=== PATIENT | male | born 1955 | race Caucasian/White ===

== ENCOUNTER 2023-03-26 10:44 | Inpatient (IN) | payer OTHER ==
[~2023-03-26] VITALS: Ht 162.6 cm; Wt 86.2 kg
[~2023-03-26 10:44] MED LIST: METF-1139 PO
[2023-03-26 10:55] VITALS: BP 122/53; PULSE 80; RESP 15; TEMP 98.4; O2SAT 99
[2023-03-26 11:51] VITALS: O2SAT 97
[2023-03-26 12:20] LABS: BASOPHILS % (AUTO) 0.6 % (0.0-2.0); EOSINOPHILS # (AUTO) 0.3 K/uL (0-0.4); HEMATOCRIT 32.2 % (36-52); HEMOGLOBIN 10.9 g/dL (12.0-18.0); LYMPHOCYTES # (AUTO) 1.1 K/uL (2.0-11.5); LYMPHOCYTES % (AUTO) 16.9 % (20.5-51.1); MEAN CORPUSCULAR HEMOGLOBIN 29 pg (27-31); MEAN CORPUSCULAR HGB CONC 34 g/dL (33-37); MEAN CORPUSCULAR VOLUME 84.7 fL (80-94); MONOCYTES # (AUTO) 0.7 K/uL (0.8-1.0); MONOCYTES % (AUTO) 10.4 % (1.7-9.3); NEUTROPHILS # (AUTO) 4.4 K/uL (1.8-7.7); NEUTROPHILS % (AUTO) 68.1 % (42.2-75.2); PLATELET COUNT (AUTO) 186 K/uL (140-450); RED CELL DISTRIBUTION WIDTH 13.2 % (11.6-13.7); WHITE BLOOD COUNT (AUTO) 6.4 K/uL (4.8-10.8)
[2023-03-26 13:14] LABS: ALBUMIN 3.1 g/dL (3.4-5.0); ANION GAP 13.2 (8-16); CALCIUM 8.4 mg/dL (8.5-10.1); CARBON DIOXIDE 23.3 mmol/L (21-32); CREATININE 1.7 mg/dL (0.6-1.3); POTASSIUM 4.5 mmol/L (3.5-5.1); TOTAL BILIRUBIN 0.5 mg/dL (0.0-1.0); TOTAL PROTEIN, SERUM 6.7 g/dL (6.4-8.2)
[2023-03-26] MEDS ORDERED: METF-352 PO (15:15)
[2023-03-26] MEDS ORDERED: DULA0.75 SUBQ (15:15)
[2023-03-26] MEDS ORDERED: LATA2.5S14 OP (15:15)
[2023-03-26] MEDS ORDERED: ERTU15TA PO (15:15)
[2023-03-26] MEDS ORDERED: [UNRECOGNIZED DRUG - CODE] (15:15)
[2023-03-26] MEDS ORDERED: CLOP75TA55 PO (15:15)
[2023-03-26] MEDS ORDERED: ASPI-1794 PO (15:15)
[2023-03-26] MEDS ORDERED: ATOR10TA51 PO (15:15)
[2023-03-26] MEDS ORDERED: FENO145T26 PO (15:15)
[2023-03-26] MEDS ORDERED: GLYB5TAB14 PO (15:15)
[2023-03-26] MEDS ORDERED: LISI10TA30 PO (15:15)
[2023-03-26] MEDS ORDERED: DORZ10SO23 (15:15)
[2023-03-26] MEDS ORDERED: ZOLPIDEM 5 MG TAB PO PRN (15:20)
[2023-03-26] MEDS ORDERED: ONDANSETRON 4 MG/2 ML VIAL IVP PRN (15:20)
[2023-03-26] MEDS ORDERED: LORazepam 1 MG TAB PO PRN (15:20)
[2023-03-26] MEDS ORDERED: MAG SULF 2000 MG/WATER PREMIX 50 ML IV PRN (15:20)
[2023-03-26] MEDS ORDERED: POTASSIUM CHLORIDE 10 MEQ TABER PO PRN (15:20)
[2023-03-26] MEDS ORDERED: ACETAMINOPHEN 325 MG TAB PO PRN (15:20)
[2023-03-26] MEDS ORDERED: MORPHINE SULFATE 4 MG/ML SYR IVP PRN (15:20)
[2023-03-26] MEDS ORDERED: KCL 20 MEQ IN 100 mL PREMIX 200 ML IV PRN (15:20)
[2023-03-26] MEDS: FUROSEMIDE 40 MG/4 ML VIAL IVP SCH ×2 (16:19→20:42)
[2023-03-26] MEDS ORDERED: DEXTROSE 50% 50 ML SYR IVP PRN (16:40)
[2023-03-26] MEDS: BLOOD GLUCOSE MONITORING 1 DEV DEV FS SCH ×2 (16:50→20:42)
[2023-03-26 17:00] VITALS: BP 134/64; PULSE 77; PULSE 85; RESP 18; TEMP 98.2; O2SAT 99
[2023-03-26] MEDS ORDERED: AMOX500C25 PO (17:10)
[2023-03-26] MEDS ORDERED: IBUP200C97 PO (17:10)
[2023-03-26] MEDS: INSULIN LISPRO SLIDING SCALE 100 UNITS/ML VIAL SUBQ PRN ×2 (18:12→20:44)
[2023-03-26 19:48] VITALS: O2SAT 96
[2023-03-26 20:00] VITALS: BP 128/67; PULSE 77; PULSE 80; RESP 18; TEMP 98.2; O2SAT 96
[2023-03-26 23:48] VITALS: PULSE 74
[2023-03-27] VITALS (9 sets, daily range): BP systolic 132–157; BP diastolic 57–77; PULSE 73–85; RESP 18–19; TEMP 97.2–98.2; O2SAT 94–99
[2023-03-27 06:37] LABS: BASOPHILS % (AUTO) 0.7 % (0.0-2.0); EOSINOPHILS # (AUTO) 0.4 K/uL (0-0.4); EOSINOPHILS % (AUTO) 6.4 % (0.0-4.0); HEMOGLOBIN 11.2 g/dL (12.0-18.0); LYMPHOCYTES # (AUTO) 1.6 K/uL (2.0-11.5); LYMPHOCYTES % (AUTO) 24.4 % (20.5-51.1); MEAN CORPUSCULAR HEMOGLOBIN 28 pg (27-31); MEAN CORPUSCULAR HGB CONC 33 g/dL (33-37); MEAN CORPUSCULAR VOLUME 84.9 fL (80-94); MONOCYTES # (AUTO) 0.6 K/uL (0.8-1.0); MONOCYTES % (AUTO) 10.1 % (1.7-9.3); NEUTROPHILS # (AUTO) 3.8 K/uL (1.8-7.7); NEUTROPHILS % (AUTO) 58.4 % (42.2-75.2); PLATELET COUNT (AUTO) 205 K/uL (140-450); RED CELL DISTRIBUTION WIDTH 13.1 % (11.6-13.7); WHITE BLOOD COUNT (AUTO) 6.4 K/uL (4.8-10.8)
[2023-03-27 07:07] LABS: ANION GAP 12.8 (8-16); CALCIUM 9.3 mg/dL (8.5-10.1); CREATININE 1.7 mg/dL (0.6-1.3); POTASSIUM 3.8 mmol/L (3.5-5.1)
[2023-03-27] MEDS: BLOOD GLUCOSE MONITORING 1 DEV DEV FS SCH ×4 (07:32→20:11)
[2023-03-27] MEDS: FUROSEMIDE 40 MG/4 ML VIAL IVP SCH ×2 (08:47→20:11)
[2023-03-27] MEDS: INSULIN LISPRO SLIDING SCALE 100 UNITS/ML VIAL SUBQ PRN ×2 (11:58→20:16)
[2023-03-27 15:03] LABS: APPEARANCE,URINE CLEAR (CLEAR); BILIRUBIN,URINE NEGATIVE (NEGATIVE); BLOOD, URINE NEGATIVE (NEGATIVE); COLOR,URINE YELLOW (YELLOW); LEUKOCYTE ESTERASE ,URINE NEGATIVE (NEGATIVE); NITRITE, URINE NEGATIVE (NEGATIVE); PROTEIN,URINE NEGATIVE (NEGATIVE); UGLUCOSE TRACE (NEGATIVE); UROBILINOGEN,URINE 0.2 EU/dL (0.2 - 1)
[2023-03-27 15:30] LABS: URINE TOTAL PROTEIN 25.4 mg/dL (0-12); URINE TPRO CREAT RATIO 0.6 (0-0.20)
[2023-03-27] MEDS: HYDROcodone/APAP 5/325 MG 1 TAB TAB PO PRN (16:24)
[2023-03-27] MEDS: BRIMONIDINE OP SCH (16:50)
[2023-03-27] MEDS ORDERED: BRIMONIDINE TARTRATE 0.2% OP 5 ML BTL BOTH EYES SCH (17:00)
[2023-03-27] MEDS: HYDROCORTISONE OT SCH (20:13)
[2023-03-27] MEDS: POLYMYXIN B OT SCH (20:13)
[2023-03-27] MEDS: NEOMYCIN OT SCH (20:13)
[2023-03-27] MEDS ORDERED: DORZOLAMIDE 2% OP 10 ML BTL BOTH EYES SCH (21:00)
[2023-03-27] MEDS ORDERED: CIPROFLOXACIN 0.3% OP 2.5 ML BTL OT SCH (21:00)
[2023-03-28 04:00] VITALS: BP 137/70; PULSE 86; RESP 18; TEMP 97.4; O2SAT 99
[2023-03-28] MEDS: BLOOD GLUCOSE MONITORING 1 DEV DEV FS SCH ×2 (06:22→12:16)
[2023-03-28] MEDS: INSULIN LISPRO SLIDING SCALE 100 UNITS/ML VIAL SUBQ PRN ×2 (06:22→12:33)
[2023-03-28 06:27] LABS: BASOPHILS % (AUTO) 0.6 % (0.0-2.0); EOSINOPHILS # (AUTO) 0.5 K/uL (0-0.4); HEMATOCRIT 35.5 % (36-52); HEMOGLOBIN 12.1 g/dL (12.0-18.0); LYMPHOCYTES # (AUTO) 1.6 K/uL (2.0-11.5); LYMPHOCYTES % (AUTO) 27.5 % (20.5-51.1); MEAN CORPUSCULAR HEMOGLOBIN 29 pg (27-31); MEAN CORPUSCULAR HGB CONC 34 g/dL (33-37); MONOCYTES # (AUTO) 0.7 K/uL (0.8-1.0); MONOCYTES % (AUTO) 11.7 % (1.7-9.3); NEUTROPHILS % (AUTO) 52.2 % (42.2-75.2); PLATELET COUNT (AUTO) 239 K/uL (140-450); RED BLOOD CELL COUNT(AUTO) 4.22 MIL/uL (4.20-6.10); RED CELL DISTRIBUTION WIDTH 12.7 % (11.6-13.7); WHITE BLOOD COUNT (AUTO) 5.7 K/uL (4.8-10.8)
[2023-03-28 06:32] LABS: ANION GAP 13.4 (8-16); CALCIUM 9.2 mg/dL (8.5-10.1); CARBON DIOXIDE 25.1 mmol/L (21-32); CREATININE 1.5 mg/dL (0.6-1.3); POTASSIUM 3.5 mmol/L (3.5-5.1)
[2023-03-28 08:00] VITALS: PULSE 73; PULSE 78; RESP 20; O2SAT 99
[2023-03-28] MEDS: NEOMYCIN OT SCH (08:52)
[2023-03-28] MEDS: HYDROCORTISONE OT SCH (08:52)
[2023-03-28] MEDS: POLYMYXIN B OT SCH (08:52)
[2023-03-28] MEDS: BRIMONIDINE OP SCH ×2 (08:55→12:43)
[2023-03-28] MEDS: FUROSEMIDE 40 MG/4 ML VIAL IVP SCH (10:02)
[2023-03-28] MEDS: HYDROcodone/APAP 5/325 MG 1 TAB TAB PO PRN (11:10)
[2023-03-28] MEDS ORDERED: FURO-570 PO (11:11)
[2023-03-28] MEDS ORDERED: POTA10TA70 PO (11:11)
[2023-03-28] MEDS ORDERED: CARV3.122 PO (13:10)
[2023-03-28] MEDS ORDERED: LISI5TAB24 PO (13:10)
[2023-03-28] MEDS ORDERED: ATOR20TA40 PO (13:10)
[2023-03-28 13:15] VITALS: BP 136/69; PULSE 73; RESP 18; TEMP 97.8
[2023-03-28] MEDS ORDERED: FUROSEMIDE 40 MG TAB PO SCH (17:00)
[2023-03-28] MEDS ORDERED: carvediloL 3.125 MG TAB PO SCH (21:00)
[2023-03-29] MEDS ORDERED: lisinopriL 5 MG TAB PO SCH (09:00)
[2023-03-29] MEDS ORDERED: ATORVASTATIN 20 MG TAB PO SCH (09:00)
[2023-03-29] MEDS ORDERED: ECOTRIN 81 MG TABEC PO SCH (09:00)
== END 2023-03-28 15:50 | disposition home or self-care (01) | DRG 291 ==
LOC: MED 10:44 → MTU 15:19 → OBSVTOIN 15:21
PROVIDERS: ADMIT Internal Medicine; ATTEND Internal Medicine
DX: I13.0 Hypertensive heart and chronic kidney disease with heart failure and stage 1 through stage 4 chronic kidney disease, or unspecified chronic kidney disease (principal); I50.43 Acute on chronic combined systolic (congestive) and diastolic (congestive) heart failure; E44.0 Moderate protein-calorie malnutrition; N17.9 Acute kidney failure, unspecified; E78.00 Pure hypercholesterolemia, unspecified; R74.01 Elevation of levels of liver transaminase levels; E11.22 Type 2 diabetes mellitus with diabetic chronic kidney disease; I42.9 Cardiomyopathy, unspecified; N18.30 Chronic kidney disease, stage 3 unspecified; Z83.3 Family history of diabetes mellitus; Z82.61 Family history of arthritis; Z79.899 Other long term (current) drug therapy; Z68.32 Body mass index [BMI] 32.0-32.9, adult
CPT/HCPCS: 36415; 71045; 76770; 80048; 80053; 81003; 82570; 82948; 83735; 83880; 84300; 84484; 85025; 85379; 87081; 93005; 99285; J1644; J1815; J1940; Q0092